=== PATIENT | male | born 1985 | race African-American/Black ===

== ENCOUNTER 2016-09-23 18:12 | Emergency (ER) | payer OTHER ==
[~2016-09-23] VITALS: Ht 175.3 cm; Wt 77.1 kg
[~2016-09-23 18:12] MED LIST: BACTRIM DS TAB1 EACH PO; DOXYCYCLINE 10100 MG PO; IBUPROFEN 600600 M1 PO; KEFLEX500 MG PO; MAGIC MOUTHWASH SWISH&SPIT; MOBIC7.5 MG PO; NORCO 5-325 TA1 EACH PO
[2016-09-23] MEDS ORDERED: FLAGYL500 MG PO (19:07)
[2016-09-23 19:12] LABS: URINE BILIRUBIN NEGATIVE (Negative); URINE BLOOD NEGATIVE (Negative); URINE COLOR YELLOW; URINE GLUCOSE-RANDOM* NEGATIVE (Negative); URINE KETONES NEGATIVE (Negative); URINE NITRITE NEGATIVE (Negative); URINE PROTEIN (DIPSTICK) NEGATIVE (Negative); URINE UROBILINOGEN 0.2 E.U./dl (0.2-1.0)
[2016-09-23 19:42] VITALS: BP 179/99
== END 2016-09-23 19:43 | disposition home or self-care (01) ==
LOC: ER 18:12
PROVIDERS: Nurse Practitioner Family
DX: N34.2 Other urethritis (principal); Z20.2 Contact with and (suspected) exposure to infections with a predominantly sexual mode of transmission

== ENCOUNTER 2017-01-18 06:33 | Emergency (ER) | payer OTHER ==
[~2017-01-18] VITALS: Ht 172.7 cm; Wt 79.4 kg
[~2017-01-18 06:33] MED LIST changes: +FLAGYL500 MG PO
[2017-01-18 06:40] VITALS: BP 157/110
[2017-01-18] MEDS ORDERED: NOHOMEMEDICATIONS (06:44)
[2017-01-18] MEDS ORDERED: CYCLOBENZAPRINE5 MG PO (07:10)
[2017-01-18] MEDS ORDERED: PENICILLIN VK500 M1 PO (07:10)
[2017-01-18] MEDS ORDERED: NORCO 5-325 TA1 EACH PO (07:10)
== END 2017-01-18 07:18 | disposition home or self-care (01) ==
LOC: ER 06:33
DX: G89.29 Other chronic pain (principal); M54.9 Dorsalgia, unspecified; K06.9 Disorder of gingiva and edentulous alveolar ridge, unspecified

== ENCOUNTER 2017-03-24 15:20 | Emergency (ER) | payer OTHER ==
[~2017-03-24] VITALS: Ht 175.3 cm; Wt 77.1 kg
[~2017-03-24 15:20] MED LIST changes: +CYCLOBENZAPRINE5 MG PO; +NOHOMEMEDICATIONS; +PENICILLIN VK500 M1 PO
[2017-03-24] MEDS ORDERED: AMOXICILLIN500 M1 PO (16:26)
[2017-03-24] MEDS ORDERED: IBUPROFEN 600600 M1 PO (16:26)
[2017-03-24] MEDS ORDERED: ZANTAC 150MG T150 MG PO (16:29)
== END 2017-03-24 16:45 | disposition home or self-care (01) ==
LOC: ER 15:20
DX: J06.9 Acute upper respiratory infection, unspecified (principal); R05 Cough; H66.92 Otitis media, unspecified, left ear

== ENCOUNTER 2017-08-05 14:49 | Emergency (ER) | payer OTHER ==
[~2017-08-05] VITALS: Ht 175.3 cm; Wt 90.7 kg
[~2017-08-05 14:49] MED LIST changes: +AMOXICILLIN500 M1 PO; +ZANTAC 150MG T150 MG PO
[2017-08-05 14:53] VITALS: BP 134/76
[2017-08-05 16:02] LABS: ABSOLUTE NEUTROPHILS 3.3 thou/uL (1.4-8.2); BASOPHILS 0.7 % (0.0-2.0); EOSINOPHILS 0.9 % (0.0-3.0); HEMATOCRIT 43.7 % (42.0-52.0); HEMOGLOBIN 14.9 gm/dL (14.0-18.0); LYMPHOCYTES 32.9 % (24.0-44.0); MCH 30.1 pg (26.0-34.0); MCV 88.6 fL (80.0-100.0); MONOCYTES 9.5 % (1.0-8.0); PLATELET COUNT 256 thou/uL (150-400); RBC 4.94 mil/uL (4.50-6.00); RDW 12.9 % (10.5-14.5); WBC 5.9 thou/uL (4.0-11.0)
[2017-08-05 16:04] LABS: CALCIUM 8.6 mg/dL (8.5-10.1); CREATININE 1.2 mg/dL (0.7-1.3)
== END 2017-08-05 16:41 | disposition home or self-care (01) ==
LOC: ER 14:49
PROVIDERS: Nurse Practitioner
DX: Z20.2 Contact with and (suspected) exposure to infections with a predominantly sexual mode of transmission (principal)

== ENCOUNTER 2019-09-19 11:03 | Emergency (ER) | payer OTHER ==
[~2019-09-19] VITALS: Ht 172.7 cm; Wt 79.4 kg
[2019-09-19 13:37] LABS: URINE BILIRUBIN NEGATIVE (Negative); URINE BLOOD NEGATIVE (Negative); URINE CLARITY CLEAR; URINE COLOR YELLOW; URINE GLUCOSE-RANDOM* NEGATIVE (Negative); URINE KETONES NEGATIVE (Negative); URINE LEUKOCYTES-REFLEX NEGATIVE (Negative); URINE NITRITE-REFLEX NEGATIVE (Negative); URINE PROTEIN (DIPSTICK) NEGATIVE (Negative); URINE SPECIFIC GRAVITY >= 1.030 (1.005-1.035); URINE UROBILINOGEN 0.2 E.U./dl (0.2-1.0)
[2019-09-19 14:36] VITALS: BP 157/104
[2019-09-21 08:42] LABS: HSV PCR SOURCE PENIS
== END 2019-09-19 14:37 | disposition home or self-care (01) ==
LOC: ER 11:03
PROVIDERS: Nurse Practitioner Family
DX: N48.1 Balanitis (principal); Z79.2 Long term (current) use of antibiotics; Z79.899 Other long term (current) drug therapy

== ENCOUNTER 2019-10-30 13:13 | Emergency (ER) | payer OTHER ==
[~2019-10-30] VITALS: Ht 172.7 cm; Wt 79.4 kg
[2019-10-30 13:22] VITALS: BP 174/94
[2019-10-30] MEDS ORDERED: NORVASC10 MG PO (13:53)
[2019-10-30] MEDS ORDERED: MAGIC MOUTHWASH SWISH&SPIT (13:53)
[2019-10-30] MEDS ORDERED: ACYCLOVIR 400400 MG PO (13:53)
[2019-10-30] MEDS ORDERED: CYCLOBENZAPRINE5 MG PO (15:05)
== END 2019-10-30 16:25 | disposition home or self-care (01) ==
LOC: ER 13:13
DX: B00.2 Herpesviral gingivostomatitis and pharyngotonsillitis (principal); I10 Essential (primary) hypertension; Z76.0 Encounter for issue of repeat prescription; Z79.2 Long term (current) use of antibiotics; Z79.1 Long term (current) use of non-steroidal anti-inflammatories (NSAID)